=== PATIENT | male | born 1995 | race African-American/Black ===

== ENCOUNTER 2018-11-27 10:50 | Emergency (ER) | payer OTHER ==
[2018-11-27 11:07] VITALS: TEMP 98.5; BMI 29.9
[2018-11-27] MEDS ORDERED: ONDANSETRON 4 MG/2 ML VIAL IVPUSH ONE (11:44)
[2018-11-27] MEDS ORDERED: FAMOTIDINE 20 MG/50 ML IVPB 20 MG/50 ML MG IVPB ONE ×2 (11:44→12:09)
[2018-11-27] MEDS ORDERED: PANTOPRAZOLE SODIUM 40 MG VIAL IVPUSH ONE (11:47)
[2018-11-27] MEDS ORDERED: SODIUM CHLORIDE 1,000 ML IV STA (11:48)
--- NOTE | 2018-11-27 12:03 | PDOC ---
History of Present Illness - General Chief Complaint: Pain Stated Complaint: STOMACH VIRUS Time Seen by Provider: 11/27/18 11:13 History Source: Patient Exam Limitations: No Limitations - History of Present Illness Initial Comments: 11/27/18 11:55 23 yo M w/ a h/o seizures comes in c/o 5 days of nausea, epigastric abdominal pain, multiple episodes of NBNB vomiting everytime he eats/drinks anything. (+)2 -3 daily episodes of NB watery stools, (+)decrease in urination, 1 episode of urination dialy, (+)malaise, anorexia. No known sick contacts, no recent travel , no rash, no other complaints today. Pt has not taken any meds for symptoms. It all started after he ate a hot dog 5 days ago. No fever/chills, no headache/neck pain, no dizziness, Past History - Past Medical History Allergies/Adverse Reactions: Allergies Allergy/AdvReac Type Severity Reaction Status Date / Time No Known Allergies Allergy Verified 11/27/18 11:04 CVA: No COPD: No CHF: No DVT: No - Immunization History Immunization Up to Date: Yes - Psycho Social/Smoking Cessation Hx Smoking History: Never smoked Information on smoking cessation initiated: No Hx Alcohol Use: No Drug/Substance Use Hx: No Review of Systems - Review of Systems Able to Perform ROS?: Yes Constitutional: Yes: Malaise. No: Chills, Fever, Night Sweats HEENTM: No: Eye Pain, Recent change in vision, Throat Pain Respiratory: No: Cough, Shortness of Breath Cardiac (ROS): No: Chest Pain, Palpitations, Chest Tightness ABD/GI: Yes: Diarrhea, Nausea, Vomiting, Abdominal cramping : No: Dysuria, Hematuria Musculoskeletal: No: Back Pain Integumentary: No: Rash Neurological: No: Headache, Numbness, Dizziness Psychiatric: Yes: Change in Appetite Endocrine: No: Unexplained Weight Loss *Physical Exam - Vital Signs Last Vital Signs Temp Pulse Resp BP Pulse Ox 98.5 F 76 16 143/93 100 11/27/18 11:04 11/27/18 11:04 11/27/18 11:04 11/27/18 11:04 11/27/18 11:04 - Physical Exam General Appearance: Yes: Nourished. No: Apparent Distress HEENT: positive: RADHA, Normal ENT Inspection, Normal Voice. negative: Pale Conjunctivae, Scleral Icterus (R), Scleral Icterus (L) Neck: positive: Supple. negative: Decreased range of motion, Tender midline Respiratory/Chest: positive: Lungs Clear, Normal Breath Sounds. negative: Respiratory Distress, Accessory Muscle Use Cardiovascular: positive: Regular Rhythm, Regular Rate Gastrointestinal/Abdominal: positive: Normal Bowel Sounds, Tender (mild epigastric, no tenderness at McBurney's point, (-)Rosving/psoas sign), Soft Male Genitalia: negative: CVAT Musculoskeletal: positive: Normal Inspection. negative: CVA Tenderness, Decreased Range of Motion Extremity: positive: Normal Capillary Refill, Normal Inspection, Normal Range of Motion. negative: Tender, Pedal Edema Integumentary: positive: Normal Color, Dry. negative: Jaundice, Rash Neurologic: positive: Fully Oriented, Alert, Normal Mood/Affect ED Treatment Course - LABORATORY CBC & Chemistry Diagram: 11/27/18 12:29 11/27/18 12:29 Medical Decision Making - Medical Decision Making 11/27/18 12:06 23 yo M w/ abdominal pain, NVD, dehydration, will line and lab, give IV fluids, pepcid, protonix, zofran and reassess 11/27/18 14:16 Pt feeling much better, no abdominal pain, he urinated. WIll do PO challenge, water, juice and crackers given. 11/27/18 14:48 Pt ate and drank in ED, tolerated PO, no abdominal pain,. he is asking to get discharged. Labs reviewed. Abdomen soft ND, with minimal tenderness to the epigastric area, I recommended a RUQ sono because the Tbil is elevated. Pt declines, saying that he thinks it is his stomach, he is hungry and just wants to go home. He is asking to get discharged Will discharge with PMD follow up and strict instructions to return for worsening/concerning symptoms including fever, abdominal pain, vomiting. bland diet Return for worsening/concerning symptoms Pt verbalizes understanding and agrees with plan. 11/27/18 15:14 Discharge - Discharge Information Problems reviewed: Yes Clinical Impression/Diagnosis: Gastroenteritis Condition: Stable Disposition: HOME - Follow up/Referral Referrals: Dayna Greene MD [Primary Care Provider] - - Patient Discharge Instructions Patient Printed Discharge Instructions: DI for Viral Gastroenteritis -- Adult, Gastroenteritis Diet Additional Instructions: Return for worsening/concerning symptoms. Do not eat spicy/dairy/greasy foods. Drink lots of water. Make a follow up appointment with your PMD. Your bilirubin level was high and I recommended an ultrasound but you could not stay. If your pain gets worse, you start vomiting again, please return to the ER for reevaluation. - Post Discharge Activity
[2018-11-27] MEDS ORDERED: PANTOPRAZOLE SODIUM 40 MG VIAL ONE (12:09)
[2018-11-27] MEDS ORDERED: ONDANSETRON 4 MG/2 ML VIAL ONE (12:09)
[2018-11-27 12:45] LABS: BASO % 0.6 % (0-2.0); EOS % 0.8 % (0-4.5); HEMATOCRIT 48.5 % (35.4-49); HEMOGLOBIN 15.9 GM/dL (11.7-16.9); LYMPH % 12.7 % (8-40); MCH 29.9 pg (25.7-33.7); MCHC 32.8 g/dl (32.0-35.9); MEAN PLT VOLUME 8.9 fl (7.5-11.1); MONO % 6.2 % (3.8-10.2); NEUT % 79.7 % (42.8-82.8); PLATELET COUNT 229 K/MM3 (134-434); RBC 5.32 M/mm3 (4.00-5.60); RDW 12.9 % (11.9-15.9); WHITE BLOOD COUNT 9.5 K/mm3 (4.0-10.0)
[2018-11-27 13:02] LABS: MAGNESIUM 2.1 mg/dL (1.8-2.4); PHOSPHOROUS 2.8 mg/dL (2.5-4.9)
[2018-11-27 13:23] LABS: ALBUMIN 4.6 g/dl (3.4-5.0); CALCIUM 9.7 mg/dL (8.5-10.1); CREATININE 0.9 mg/dL (0.55-1.3); POTASSIUM 4.5 mmol/L (3.5-5.1); TOT PROT 8.5 g/dl (6.4-8.2)
[2018-11-27 13:53] LABS: PH,URINE 7.5 (5.0-8.0); URINE APPEARANCE CLEAR; URINE BILIRUBIN NEGATIVE (NEGATIVE); URINE COLOR YELLOW; URINE GLUCOSE (UA) NEGATIVE (NEGATIVE); URINE KETONE NEGATIVE (NEGATIVE); URINE LEUK ESTERASE NEGATIVE (NEGATIVE); URINE NITRITE NEGATIVE (NEGATIVE); URINE PROTEIN NEGATIVE (NEGATIVE)
[2018-11-27 15:28] VITALS: BP 136/68; PULSE 88
== END 2018-11-27 15:30 | disposition home or self-care (01) ==
LOC: JER 10:50
PROC: 3E033GC Introduction of Other Therapeutic Substance into Peripheral Vein, Percutaneous Approach (ICD-10-PCS; principal; 2018-11-27)
PROC: 3E033GC Introduction of Other Therapeutic Substance into Peripheral Vein, Percutaneous Approach (ICD-10-PCS; 2018-11-27)
PROC: 3E033NZ Introduction of Analgesics, Hypnotics, Sedatives into Peripheral Vein, Percutaneous Approach (ICD-10-PCS; 2018-11-27)
DX: K52.9 Noninfective gastroenteritis and colitis, unspecified (principal); G40.909 Epilepsy, unspecified, not intractable, without status epilepticus
CPT/HCPCS: 36415; 80053; 81003; 83690; 83735; 84100; 85025; 96365; 96375; 99282-25; J7030